=== PATIENT | female | born 1965 | race Two or more races ===

== ENCOUNTER 2018-11-22 02:39 | Emergency (ER) | payer MEDICAID ==
[~2018-11-22 02:39] MED LIST: ALBU2.5V13 NEB; AMAN100T PO; CEFT1FRO2 IV; ENOX40DI SQ; FOLI1TAB16 PO; IPRA0.2S9 NEB; LACT-209 GT; LACT1CAP72 GT; LEVE1000 PO; LISI-603 PO; METO25TA6 PO; QUET50TA PO; RANI300T4 PO; THIA100V2 GT
[2018-11-22] MEDS ORDERED: TDAP [DIPH/PERTUSSIS/TET] 0.5 ML VIAL IM ONE (03:04)
[2018-11-22] MEDS ORDERED: LIDOCAINE MPF 1%-EPI 1:200,000 30 ML VIAL IJ ONE (04:20)
--- NOTE | 2018-11-22 07:10 | NUR ---
SEE DOWNTIME ORM FOR DOCUMENTATION
== END 2018-11-22 07:10 | disposition home or self-care (01) ==
LOC: ER 02:39
DX: S01.81XA Laceration without foreign body of other part of head, initial encounter (principal); S09.8XXA Other specified injuries of head, initial encounter; R56.9 Unspecified convulsions; I10 Essential (primary) hypertension; R53.1 Weakness; Z98.890 Other specified postprocedural states; W18.39XA Other fall on same level, initial encounter; Y93.89 Activity, other specified; Y92.89 Other specified places as the place of occurrence of the external cause; Y99.8 Other external cause status
CPT/HCPCS: 12011; 70450; 90471; 90715; 99284; J3490

== ENCOUNTER 2019-04-15 01:15 | Emergency (ER) | payer MEDICAID ==
[~2019-04-15] VITALS: Ht 157.5 cm; Wt 49.9 kg
--- NOTE | 2019-04-15 01:25 | NUR ---
PT BIBA FROM FACILITY C/O N/V X 1 DAY. PT ALERT AND AWAKE, NON VERBAL, PLACED ON 5L O2 SATTING AT 96% AT THIS POINT. PT CONNECTED TO THE MACHINE SIZER AND POX.
[2019-04-15] MEDS ORDERED: IV NS 0.9% 1,000 ML BAG IV ONE (01:30)
[2019-04-15] MEDS ORDERED: ACETAMINOPHEN 650 MG/SUPP.RECT RC ONE ×2 (01:30→01:42)
--- NOTE | 2019-04-15 01:30 | NUR ---
BLOOD COLLECTED AND SENT TO LAB
[2019-04-15 01:57] LABS: BASOPHILS % (AUTO) 0.2 % (0.0-2.0); HEMATOCRIT 41 % (33-45); HEMOGLOBIN 13.8 g/dL (11.5-14.8); LYMPHOCYTES # (AUTO) 0.9 /CMM (0.8-4.8); LYMPHOCYTES % (AUTO) 7.4 % (20.0-44.0); MEAN CORPUSCULAR HGB CONC 34 g/dl (31.0-36.0); MEAN CORPUSCULAR VOLUME 92 fL (82-100); MONOCYTES % (AUTO) 7.8 % (2.0-12.0); NEUTROPHILS # (AUTO) 10.5 /CMM (1.8-8.9); NEUTROPHILS % (AUTO) 84.6 % (43.0-81.0); PLATELET COUNT (AUTO) 294 /CMM (150-450); RED BLOOD CELL COUNT(AUTO) 4.46 MIL/uL (4.0-5.2); WHITE BLOOD COUNT (AUTO) 12.4 K/uL (4.3-11.0)
--- NOTE | 2019-04-15 02:01 | NUR ---
URINE COLLECTED AND SENT TO LAB
[2019-04-15 02:03] LABS: CALCIUM, SERUM 9.8 mg/dL (8.5-10.1); CARBON DIOXIDE 31 mmol/L (21-32); CHLORIDE 93 mmol/L (98-107); CREATININE 0.9 mg/dL (0.6-1.3); GLUCOSE 95 mg/dL (74-106); SODIUM SERUM 134 mmol/L (136-145); UREA NITROGEN, BLOOD 26 mg/dL (7-18)
[2019-04-15 02:08] LABS: APPEARANCE,URINE CLEAR (CLEAR); BILIRUBIN,URINE NEGATIVE (NEGATIVE); BLOOD, URINE NEGATIVE Ery/uL (NEGATIVE); COLOR,URINE YELLOW (YELLOW); KETONES,URINE NEGATIVE (NEGATIVE); LEUKOCYTE ESTERASE ,URINE NEGATIVE (NEGATIVE); NITRITE, URINE NEGATIVE (NEGATIVE); PH,URINE 6.5 (5.0-8.0); PROTEIN,URINE 30 mg/dl (NEGATIVE); UGLUCOSE NEGATIVE (NEGATIVE)
[2019-04-15 02:22] LABS: ALANINE AMINOTRANSFERASE 28 U/L (12-78); ALBUMIN 3.5 g/dL (3.4-5.0); ALKALINE PHOSPHATASE 206 U/L (46-116); ASPARTATE AMINOTRANSFERASE 38 U/L (15-37); B-TYPE NATRIURETIC PEPTIDE 835 PG/ML (0-125); BILIRUBIN,DIRECT 0.1 mg/dL (0.0-0.2); BILIRUBIN,TOTAL 0.3 mg/dL (0.2-1.0); TOTAL PROTEIN, SERUM 8.2 g/dL (6.4-8.2)
--- NOTE | 2019-04-15 03:00 | NUR ---
REPORT GIVEN TO KARLENE MAURICE, [employer]
[2019-04-15 03:01] LABS: BACTERIA,URINE n /HPF (None Seen); RBC,URINE 0-2 /HPF (0-2); WBC,URINE 0-2 /HPF (0-3)
[2019-04-15 03:02] LABS: MUCUS,URINE Few /LPF (None Seen); SQUAMOUS EPITHELIAL CELL,UR Few /HPF (None Seen); URINE AMORPHOUS URATE Few /HPF (None Seen)
--- NOTE | 2019-04-15 03:36 | NUR ---
AMBULANCE ETA 0530.
--- NOTE | 2019-04-15 04:30 | NUR ---
REPORT GIVEN TO EMS, PATIENT STABLE FOR TRANSFER
[2019-04-15 04:31] VITALS: BP 118/71
--- NOTE | 2019-04-15 04:36 | NUR ---
Patient discharged to facility in stable condition. Written and verbal after care instructions given. IV removed. Catheter intact and site benign. Pressure and 4x4 applied to site. No bleeding noted.
== END 2019-04-15 04:37 | disposition home or self-care (01) ==
LOC: ER 01:15
DX: H10.89 Other conjunctivitis (principal); B99.8 Other infectious disease; R50.9 Fever, unspecified; R11.10 Vomiting, unspecified; R00.0 Tachycardia, unspecified; R56.9 Unspecified convulsions; I10 Essential (primary) hypertension; Z79.899 Other long term (current) drug therapy
CPT/HCPCS: 36415; 71045; 80048; 80076; 81001; 83605; 83880; 84145; 84484; 85025; 85730; 87040 ×2; 87086; 87804 ×2; 93005; 96360; 99284; J7030; 81000-TC